=== PATIENT | male | born 1965 | race Caucasian/White ===

== ENCOUNTER 2019-10-14 21:01 | Emergency (ER) | payer OTHER, SELFPAY ==
[2019-10-14 21:22] VITALS: PULSE 83; RESP 16; TEMP 36.8; O2SAT 97
--- NOTE | 2019-10-14 21:45 | ED.UPPEXIN ---
HPI - Extremity Injury (Upper) General Chief Complaint: Extremity Injury, Upper Stated Complaint: possible infection in finger, pain up arm Source: patient Mode of arrival: ambulatory History of Present Illness HPI narrative: this is a 54-year-old gentleman that presents with a swollen tender right 3rd finger that after manicure the patient started developed some swelling redness and discharge around the nail of his right 3rd finger that radiates into his finger and arm currently in the finger there is some swelling with redness and tenderness to palpation has decreased range of motion in the finger secondary to swelling. Currently there is no fever or chills no nausea vomiting no abdominal pain no shortness of breath. complaint: injury to: right Other Extremity Injury: Right: fingers ( Right middle finger swollen) Handedness: right Place: home Severity: moderate Severity scale (1-10): 6 Relieving factors: none Exacerbating factors: none Context: other ( self manicure) Related Data Home Medications Medication Instructions Recorded Confirmed atorvastatin 40 mg PO DAILY 10/14/19 10/14/19 clopidogrel 75 mg PO DAILY 10/14/19 10/14/19 hydrocodone-acetaminophen 1 tablet PO PRN 10/14/19 10/14/19 metoprolol succinate 25 mg PO DAILY 10/14/19 10/14/19 oxycodone-acetaminophen 1 tablet PO PRN 10/14/19 10/14/19 sertraline 50 mg PO DAILY 10/14/19 10/14/19 tramadol 50 mg PO DAILY 10/14/19 10/14/19 Allergies Allergy/AdvReac Type Severity Reaction Status Date / Time No Known Allergies Allergy Unknown Unverified 11/30/13 16:02 Review of Systems Review of Systems: All systems reviewed & are unremarkable except as noted in HPI and below PMFSH Past Medical History Medical History HLD (hyperlipidemia) HTN (hypertension) Exam Const: General: no acute distress and alert Orientation/consciousness: patient oriented x3 HENMT: Head: normal to inspection Eyes: Conjunctivae: conjunctivae normal EOM: EOMs intact bilaterally Neck: Neck: normal visual inspection, no lymphadenopathy and no meningeal signs Chest: Chest palpation & inspection: normal inspection of the chest Resp: Effort & Inspection: normal respiratory effort Auscultation: clear to auscultation bilaterally Cardio: Rate: regular rate Rhythm: regular rhythm GI: GI Palp: Yes Soft to palpation Back/Spine/Pelvis: Back: no CVA tenderness Skin: Wounds: wounds noted Extrem: Other: redness swelling tenderness with some drainage of the right 3rd finger with warmth redness radiating into his right wrist. Psych: Mental Status: mental status grossly normal Course Course Emergency Course: The right 3rd finger was prepped with a Betadine 11 blade scalpel used to relieve some pressure and and the area was cultured, the patient tolerated procedure well complains a little bit of intense pain, patient was given IM Toradol and IM ceftriaxone. Critical Care Time Critical Care Time Critical Care Time: No Discharge Plan Discharge Clinical Impression: Paronychia Patient Disposition: Home, Self-Care Condition: Stable Instructions: Antibiotic Form, Paronychia (ED) Additional Instructions: Take medicine as prescribed and follow-up with primary care physician if symptoms persist or worsen. Prescriptions: New amoxicillin-pot clavulanate [Augmentin] 875-125 mg tablet 1 tablet PO Q12H Qty: 20 RF: 0 mupirocin 2 % ointment 1 applic TOPICAL TID 7 Days Qty: 15 RF: 0 No Action atorvastatin 40 mg tablet 40 mg PO DAILY RF: 0 hydrocodone-acetaminophen 5-325 mg tablet 1 tablet PO PRN RF: 0 clopidogrel 75 mg tablet 75 mg PO DAILY RF: 0 tramadol 50 mg tablet 50 mg PO DAILY RF: 0 oxycodone-acetaminophen 5-325 mg tablet 1 tablet PO PRN RF: 0 metoprolol succinate 25 mg tablet extended release 24 hr 25 mg PO DAILY RF: 0 sertraline 50 mg tablet 50 mg PO DA
[2019-10-14] MEDS: KETOROLAC (*BKC) 60 MG/2 ML VIAL IM (21:53)
[2019-10-14] MEDS: cefTRIAXone 1 GM VIAL IM (21:59)
[2019-10-14] MEDS: LIDOCAINE HCL 1% LOCAL INJ 20 ML VIAL (22:08)
[2019-10-14 22:13] VITALS: PULSE 89; RESP 20; O2SAT 100
== END 2019-10-14 22:10 | disposition home or self-care (01) ==
PROVIDERS: Emergency Provider Emergency Medicine; PCP Family Medicine
DX: L03.011 Cellulitis of right finger (principal)
CPT/HCPCS: 10060; 87070; 87205; 96372; 99283; 99284; J0696; J1885

== ENCOUNTER 2020-02-02 09:28 | Emergency (ER) | payer OTHER, SELFPAY ==
[2020-02-02] VITALS (7 sets, daily range): BP systolic 92–134; BP diastolic 56–79; PULSE 71–92; RESP 17–29; TEMP 37.6; O2SAT 94–99
--- NOTE | ~2020-02-02 | XR_ITS ---
EXAMINATION: XR chest 1V portable DATE: 02/02/2020 10:30 INDICATION: Shortness of breath. COVID-19 positive. TECHNIQUE: A single frontal view of the chest was obtained. COMPARISON: None. FINDINGS: There are patchy airspace opacities involving all lung zones bilaterally. No pleural effusi on or pneumothorax. The heart size is normal. Median sternotomy wires and mediastinal surgical clips are seen, likely from prior coronary artery bypass grafting. IMPRESSION: 1. Diffuse lung disease, consistent with pneumonia. Reviewed, dictated and finalized at location B. [employer]UTION ANALYST
--- NOTE | 2020-02-02 09:38 | ECG_ITS ---
Measurements Intervals [place] Rate: 86 P: 41 [place]: 188 QRS: -2 QRSD: 101 T: 22 QT: 320 QTc: 385 Interpretive Statements SINUS RHYTHM INCOMPLETE RIGHT BUNDLE BRANCH BLOCK BORDERLINE R WAVE PROGRESSION, ANTERIOR LEADS MINIMAL Q WAVES- INFERIOR LEADS BORDERLINE ECG Electronically Signed On 02-02-2020 11:22:17 FINANCE CLERK by Jorge Barnett D.O.
--- NOTE | 2020-02-02 10:01 | ED.GENADULT ---
HPI - General Adult General Chief complaint: Shortness of Breath/Dyspnea Stated complaint: COVID+ more SOB Time Seen by Provider: 02/02/20 09:31 Source: patient Mode of arrival: ambulatory Limitations: no limitations History of Present Illness HPI narrative: Patient is a 54-year-old male who presents to emergency department for evaluation of shortness of breath that has worsened since being diagnosed with Covid has been sick for roughly 5 days patient notes that he is having increasing difficulty with breathing at this time patient denies chest pain does note intermittent fevers has been attempting [id number] medications with minimal improvement. Patient notes diarrhea did have 1 episode of emesis this morning. Related Data Home Medications Medication Instructions Recorded Confirmed atorvastatin 40 mg PO DAILY 10/14/19 02/02/20 clopidogrel 75 mg PO DAILY 10/14/19 02/02/20 hydrocodone-acetaminophen 1 tablet PO PRN 10/14/19 10/14/19 metoprolol succinate 25 mg PO DAILY 10/14/19 02/02/20 oxycodone-acetaminophen 1 tablet PO PRN 10/14/19 10/14/19 sertraline 50 mg PO DAILY 10/14/19 02/02/20 tramadol 50 mg PO DAILY 10/14/19 10/14/19 Allergies Allergy/AdvReac Type Severity Reaction Status Date / Time No Known Allergies Allergy Unknown Verified 02/02/20 10:28 Review of Systems Review of Systems: All systems reviewed & are unremarkable except as noted in HPI and below PMFSH Past Medical History Medical History (Updated 02/02/20 @ 11:52 by Conrad Roy PA-C) HLD (hyperlipidemia) HTN (hypertension) Social History Social History Gender identity (if verbalized by the patient): Female Exam Narrative: Exam Narrative: GENERAL: Ill-appearing, well-nourished, and in no acute distress. HEAD: Normocephalic, atraumatic. EYES: PERRLA and EOMI. ENT: Nares clear, no rhinorrhea or epistaxis. Mucous membranes moist. NECK: Supple. No adenopathy or masses. CHEST: Clear to auscultation. No respiratory distress. Diffuse crackles HEART: Regular rate and rhythm. No murmur heard. Normal peripheral pulses. EXTREMITIES: Normal range of motion. No edema. SKIN: Warm, dry, no rash. NEURO: No focal deficits. Alert and oriented x3. Normal speech and gait PSYCH: Normal mood and affect. Course Course Emergency Course: Patient in the room at this time is been hydrated was given an MDI instruction was given steroid as well will be discharged home on antibiotics with follow-up with primary care patient is agreeing to do so. Patient was given strict reasons to return. Patient was able to ambulate without becoming hypoxic with an oxygenation of 94 to 96% is feeling better with interventions. Consultations Consultation #1: Attempted to call primary care with no return call Date: 02/02/20 Time: 11:46 Vital Signs Vital signs: Vital Signs Temperature 99.6 F 02/02/20 09:45 Pulse Rate 90 02/02/20 09:45 Respiratory Rate 21 H 02/02/20 09:45 Blood Pressure 134/79 02/02/20 09:45 Pulse Oximetry 99 02/02/20 09:45 Temperature 99.6 F 02/02/20 09:45 Pulse Rate 77 02/02/20 11:45 Respiratory Rate 17 02/02/20 11:45 Blood Pressure 117/75 02/02/20 11:45 Pulse Oximetry 97 02/02/20 11:45 Medical Decision Making [facility] Narrative Medical decision making narrative: Patient with Covid pneumonia stable vital signs no hypoxemia will be sent home with medications treated symptomatically with antibiotic as well will be advised to follow with primary care by phone today to set up for reevaluation in the next 2 to 3 days as well as provided with reasons to return advised to buy an oximeter to watch his oxygen patient agrees with this plan Vital Signs Vital Signs: Vital Signs Temperature 99.6 F 02/02/20 09:45 Pulse Rate 90 02/02/20 09:45 Respiratory Rate 21 H 02/02/20 09:45 Blood Pressure 134/79 02/02/20 09:45 Pulse Oximetry 99 02/02/20 09:45
[2020-02-02] MEDS: SODIUM CHLORIDE 0.9% IV 1,000 ML 999 ML IV CONT (10:07)
[2020-02-02 10:12] LABS: Hematocrit 46.6 % (42.0-52.0); Hemoglobin 16.5 g/dL (14.0-18.0); Immature Platelet Fraction Pct 4.5 % (0.9-11.2); Lymphocytes Absolute Auto 0.69 K/mm3 (0.9-3.2); Lymphocytes Percent Auto 22.1 % (18.3-44.2); Mean Corpuscular HGB Conc 35.4 g/dl (32-36); Mean Corpuscular Hemoglobin 30.7 pg (26-34); Mean Corpuscular Volume 86.6 fl (80-100); Mean Platelet Volume 10.6 fl (7.4-10.4); Monocytes Absolute Auto 0.3 K/mm3 (0.1-0.6); Monocytes Percent Auto 9.9 % (2.6-8.5); Neutrophils Absolute Auto 2.1 K/mm3 (1.3-6.7); Platelet Count Result 99 k/mm3 (150-375); Red Blood Count 5.38 M/mm3 (4.6-6.20); Red Cell Distribution Width 11.9 % (11.5-14.5); White Blood Count 3.1 K/mm3 (4.5-10.0)
[2020-02-02 10:20] LABS: INR 0.9; Prothrombin Time 12.3 Seconds (11.1-14.7)
[2020-02-02 10:21] LABS: Partial Thromboplastin Time 34.3 SECONDS (22.3-36.8)
[2020-02-02 10:41] LABS: Lactic Acid Reflex 0.8 mmol/L (0.7-2.1)
[2020-02-02 10:49] LABS: Alanine Aminotransferase 32 U/L (4-50); Albumin Level 3.9 g/dL (3.5-5.1); Alkaline Phosphatase 54 U/L (38-126); Anion Gap 6 mmol/L (8-16); Aspartate Amino Transferase 51 U/L (17-59); Bilirubin,Total 0.7 mg/dL (0.2-1.3); Blood Urea Nitrogen 16 mg/dL (9-20); Calcium 8.7 mg/dL (8.4-10.2); Carbon Dioxide 27 mmol/L (22-30); Chloride 99 mmol/L (98-107); Estimated CRCL calculation 81 ml/min; Estimated Glomerular Filt Rate > 60; Glucose 114 mg/dL (75-110); Potassium 4.3 mmol/L (3.4-5.0); Sodium 132 mmol/L (137-145)
[2020-02-02 10:54] LABS: Troponin I < 0.012 ng/mL (0.000-0.034)
[2020-02-02 11:23] LABS: CRP 4.7 mg/dL (<1.0)
--- NOTE | 2020-02-02 11:33 | PC.NURSE ---
Pt ambulates around room with pulse oximetry in place. States is feeling better. States every time I take a deep breath I cough .
[2020-02-02] MEDS: DEXAMETHASONE SOD PHOS INJ 4 MG/ML VIAL 10 MG IV PUSH (12:12)
== END 2020-02-02 12:40 | disposition home or self-care (01) ==
PROVIDERS: Emergency Medicine Emergency Medical Services; Emergency Provider Emergency Medicine; PCP Family Medicine
DX: U07.1 COVID-19 (principal); J12.89 Other viral pneumonia; E78.5 Hyperlipidemia, unspecified; I10 Essential (primary) hypertension
CPT/HCPCS: 36415; 71045; 80053; 83605; 84484; 85025; 85055; 85610; 85730; 86140; 87040; 93005; 96361; 96365; 96375; 99284; J0131; J1100; J7030

== ENCOUNTER 2020-12-05 08:29 | Emergency (ER) | payer OTHER, SELFPAY ==
--- NOTE | ~2020-12-05 | XR_ITS ---
EXAMINATION: XR chest 2V 12/05/2020 08:58 INDICATION: Cough and congestion PROCEDURE: 2 view chest COMPARISON: 02/02/2020 FINDINGS: The lungs are clear. The cardiomediastinal silhouette is within normal limits. There are no pleural effusions. There is no pneumothorax suspected. There are healed left lower rib fractures . Status post median sternotomy for CABG. IMPRESSION: 1: NO ACUTE CARDIOPULMONARY DISEASE. Reviewed, dictated and finalized at location A.
[2020-12-05 08:36] VITALS: BP 144/81; PULSE 89; RESP 20; TEMP 36.8; O2SAT 100
[2020-12-05 08:42] VITALS: BP 144/81; PULSE 89; RESP 20; TEMP 36.8; O2SAT 100
--- NOTE | 2020-12-05 09:11 | ED.GENADULT ---
HPI - General Adult General Chief complaint: Upper Respiratory Infection Stated complaint: coughing and lungs feel tight Time Seen by Provider: 12/05/20 09:00 Source: patient, RN notes reviewed and old records reviewed Mode of arrival: ambulatory Limitations: no limitations History of Present Illness HPI narrative: 55 year old [facility] complaints of cough, nasal drainage, feels like he can't take a deep breath for one week duration Patient states that his cough is worse at night and is keeping him awake at night. Patient reports that he has noted a little shortness of breath with exertion, denies any wheezing. Patient reports COVID in January with double pneumonia and hospitalization. He has had COVID vaccinations also.Patient able to speak in full sentences, no tachypnea noted SAO2 100% on room air. MD complaint: cough, nasal drainage Onset (ago): week(s) (1) Related Data Home Medications Medication Instructions Recorded Confirmed atorvastatin 40 mg PO DAILY 10/14/19 12/05/20 clopidogrel 75 mg PO DAILY 10/14/19 12/05/20 hydrocodone-acetaminophen 1 tablet PO PRN 10/14/19 12/05/20 metoprolol succinate 25 mg PO DAILY 10/14/19 12/05/20 oxycodone-acetaminophen 1 tablet PO PRN 10/14/19 12/05/20 sertraline 50 mg PO DAILY 10/14/19 12/05/20 tramadol 50 mg PO DAILY 10/14/19 12/05/20 Allergies Allergy/AdvReac Type Severity Reaction Status Date / Time No Known Allergies Allergy Unknown Verified 12/05/20 08:39 Review of Systems Review of Systems: CONSTITUTIONAL: Denies fever, chills, or sweats. EYES: Denies visual changes, redness, or discharge. ENT: Positive rhinorrhea, congestion, sore throat, or otalgia. CARDIOVASCULAR: Denies chest pain, palpitations, or edema. RESPIRATORY: Positive cough dyspnea with exertion at times GASTROINTESTINAL: Denies abdominal pain, nausea, vomiting, or diarrhea. GENITOURINARY: Denies dysuria or hematuria. SKIN: Denies rash or itching. MUSCULOSKELETAL: Denies back pain, joint pain, or myalgia. NEUROLOGIC: Denies headache, numbness, or weakness. PSYCHIATRIC: Denies anxiety or depression. All systems reviewed & are unremarkable except as noted in HPI and below PMFSH Past Medical History Medical History (Updated 12/09/20 @ 09:26 by Mable Ayala NP) COVID-19 HLD (hyperlipidemia) HTN (hypertension) Pneumonia Surgical History Surgical History (Updated 12/09/20 @ 09:24 by Mable Ayala NP) History of arthroscopy of both knees History of open heart surgery 4 vessel bypass Family History Family History (Updated 12/09/20 @ 09:27 by Mable Ayala NP) Other Heart disease Social History Social History (Updated 12/09/20 @ 09:25 by Mable Ayala NP) Smoking status: Never smoker Alcohol intake: current Alcohol use details: social Substance use type: does not use Living arrangements: with family Gender identity (if verbalized by the patient): Male Exam Narrative: GENERAL: Well-appearing, well-nourished, and in no acute distress. HEAD: Normocephalic, atraumatic. EYES: PERRLA and EOMI. ENT: Nares red, clear rhinorrhea no epistaxis. Mucous membranes moist.TM's normal, throat some mild redness with no lesions or exudates, no tonsil swelling,post nasal drainage noted NECK: Supple.no lymphadenopathy CHEST: Clear to auscultation. No respiratory distress.SAO2 100% on room air, acute cough HEART: Regular rate and rhythm. No murmur heard. Normal peripheral pulses. ABDOMEN: Soft, nontender, nondistended, normal active bowel sounds. EXTREMITIES: Normal range of motion. No edema. SKIN: Warm, dry, no rash. NEURO: No focal deficits. Alert and oriented x3. Course Vital Signs Vital signs: Vital Signs Temperature 36.8 C 12/05/20 08:36 Pulse Rate 89 12/05/20 08:36 Respiratory Rate 20 12/05/20 08:36 Blood Pressure 144/81 H 12/05/20 08:36 Pulse Oximetry 100 12/05/20 08:36 Temperature 36.8 C 12/05/20 08:42 Pulse
== END 2020-12-05 09:45 | disposition home or self-care (01) ==
PROVIDERS: Emergency Provider Registered Nurse; PCP Family Medicine
DX: J01.90 Acute sinusitis, unspecified (principal); B96.89 Other specified bacterial agents as the cause of diseases classified elsewhere; E78.5 Hyperlipidemia, unspecified; I10 Essential (primary) hypertension; Z20.822 Contact with and (suspected) exposure to COVID-19; Z79.891 Long term (current) use of opiate analgesic
CPT/HCPCS: 71046; 87426; 99213; C9803; G0463

== ENCOUNTER 2021-08-31 09:52 | Emergency (ER) | payer OTHER, SELFPAY ==
[2021-08-31 09:56] VITALS: BP 147/76; PULSE 95; RESP 20; TEMP 37.1; O2SAT 100
--- NOTE | 2021-08-31 10:04 | ED.ABDPAIN ---
HPI - Abdominal Pain General Chief Complaint: Abdominal Pain Stated Complaint: abdo pain nausea Source: patient and RN notes reviewed Mode of arrival: ambulatory Limitations: no limitations History of Present Illness HPI narrative: 56-year-old male presented for complaint of right lower abdominal pain and vomiting since last night. Pain radiates into the right testicle. Endorses weak urinary stream and nausea and fever/chills at this time. Pain came on suddenly while at work last evening. He denies known injury. Denies chest pain, shortness of breath, cough, or dizziness. Hx CABG x4 vessel. Related Data Home Medications Medication Instructions Recorded Confirmed atorvastatin 40 mg tablet 40 mg PO DAILY 10/14/19 12/05/20 clopidogrel 75 mg tablet 75 mg PO DAILY 10/14/19 12/05/20 hydrocodone 5 mg-acetaminophen 325 1 tablet PO PRN 10/14/19 12/05/20 mg tablet metoprolol succinate 25 mg 25 mg PO DAILY 10/14/19 12/05/20 tablet,extended release 24 hr oxycodone-acetaminophen 5 mg-325 1 tablet PO PRN 10/14/19 12/05/20 mg tablet sertraline 50 mg tablet 50 mg PO DAILY 10/14/19 12/05/20 tramadol 50 mg tablet 50 mg PO DAILY 10/14/19 12/05/20 sildenafil 100 mg tablet tablet 08/31/21 08/31/21 Allergies Allergy/AdvReac Type Severity Reaction Status Date / Time No Known Allergies Allergy Unknown Verified 08/31/21 09:58 Review of Systems Review of Systems: CONSTITUTIONAL: Denies body aches, fever, chills CARDIOVASCULAR: Denies chest pain, palpitations, or edema. RESPIRATORY: Denies cough or dyspnea. GASTROINTESTINAL: Endorses abdominal pain, nausea, vomiting. Denies hematochezia, melena, hematemesis GENITOURINARY: Denies dysuria, hematuria, or CVA tenderness. SKIN: Denies rash, itching, or wounds. MUSCULOSKELETAL: Denies back pain, joint pain NEUROLOGIC: Denies headache, numbness, tingling, or weakness. All systems reviewed & are unremarkable except as noted in HPI and below PMFSH Past Medical History Medical History COVID-19 HLD (hyperlipidemia) HTN (hypertension) Pneumonia Surgical History Surgical History History of arthroscopy of both knees History of open heart surgery 4 vessel bypass Family History Family History Other Heart disease Social History Social History Smoking status: Never smoker Alcohol intake: current Alcohol use details: social Substance use type: does not use Gender identity (if verbalized by the patient): Male Comments At time of signature, I have reviewed and agree with nursing past medical, surgical, social and family history unless otherwise noted. Please see nursing chart for further information. There is no relevant family history pertinent to the presenting complaint Exam Narrative: GENERAL:Ill appearing CHEST: No respiratory distress. Clear to auscultation. HEART: Regular rate and rhythm. No murmur appreciated. Normal peripheral pulses. ABDOMEN: Tender abdomen RLQ with guarding, pain worse with position change, no rebound tenderness, or asymmetry; abd soft, nondistended, normal active bowel sounds. No groin swelling. MUSCULOSKELETAL: No bony tenderness. EXTREMITIES: Normal range of motion. No edema. SKIN: Warm, dry, no rash. Capillary refill normal. Normal skin turgor. Course Course Emergency Course: Patient is aware of diagnosis, understands and agrees to treatment plan. Anticipatory guidance given. Portions of this record may have been created with voice recognition software Level of Care: Express Care Visit Vital Signs Vital signs: Vital Signs Temperature 98.7 F 08/31/21 09:56 Pulse Rate 95 08/31/21 09:56 Respiratory Rate 20 08/31/21 09:56 Blood Pressure 147/76 H 08/31/21 09:56 Pulse Oximetry 100
== END 2021-08-31 10:20 | disposition short-term general hospital (02) ==
PROVIDERS: Emergency Provider Nurse Practitioner Family; PCP Family Medicine
DX: R10.31 Right lower quadrant pain (principal); Z20.822 Contact with and (suspected) exposure to COVID-19; E78.5 Hyperlipidemia, unspecified; I10 Essential (primary) hypertension; Z86.16 Personal history of COVID-19; Z95.1 Presence of aortocoronary bypass graft
CPT/HCPCS: 87426; 99213; C9803; G0463